=== PATIENT | female | born 1990 | race Caucasian/White ===

== ENCOUNTER → 2017-04-24 | Outpatient (CLI) | payer BC ==
[~2017-04-24] MED LIST: GADAVIST IV PRN
--- NOTE | 2017-04-24 15:21 | DIAGNOSTIC IMAGING REPORT ---
MRI OF THE BRAIN WITHOUT AND WITH IV CONTRAST CLINICAL HISTORY: H53.9 Vision disturbance headaches, vision loss COMPARISON STUDY: No previous studies for comparison. TECHNIQUE: Utilizing a 1.5 Charmaine magnet and dedicated coil, multiplanar, multiecho imaging of the brain was performed pre and postcontrast administration. IV administration of 8.5 mL of Gadavist contrast was uneventful. FINDINGS: Diffusion-weighted images are normal. Signal characteristics of the cerebellar as well as cerebral hemispheres are within normal limits. Ventricular system is midline. There is no evidence for abnormal postcontrast enhancement. IMPRESSION: Normal study. Electronically signed by: Navneet Taylor M.D. 04/24/2017 3:19 PM Dictated Date/Time: 04/24/2017 3:12 PM
== END | disposition home or self-care (01) ==
LOC: C.MRI 14:10
PROVIDERS: ATTEND Physician Assistant
DX: H53.9 Unspecified visual disturbance (principal)